=== PATIENT | male | born 1945 | race Caucasian/White ===

== ENCOUNTER 2021-03-30 07:07 | Day surgery (SDC) | payer OTHER ==
[2021-03-30] MEDS ORDERED: CEFAZOLIN/SWI 1gm 1 GM/10 ML SYR ONE (07:38)
[2021-03-30] MEDS ORDERED: Ringers Lactate 1,000 ML IV ONE (07:38)
[2021-03-30] MEDS ORDERED: LIDOCAINE 1% MPF 30 ML VIAL ONE (08:29)
[2021-03-30] MEDS ORDERED: BUPIVACAINE 0.25% PF 30 ML VIAL ONE (08:29)
[2021-03-30] MEDS ORDERED: propofoL 200 MG/20 ML VIAL IV ONE (08:35)
[2021-03-30] MEDS ORDERED: FENTANYL CITR 100 MCG/2 ML ONE (08:35)
[2021-03-30] MEDS ORDERED: LIDOCAINE 2% MPF 5 ML VIAL ONE (08:36)
[2021-03-30] MEDS ORDERED: ONDANSETRON 4 MG/2 ML VIAL ONE (08:38)
[2021-03-30] MEDS ORDERED: LIDOCAINE 1% W/EPI 1:100,000 MDV 50 ML VIAL ONE (08:59)
[2021-03-30] MEDS ORDERED: LIDOCAINE 1% W/EPI 1:100,000 MDV 20 ML VIAL ONE (09:02)
--- NOTE | 2021-03-30 09:30 | P.OP ---
Preoperative diagnosis: RIGHT wrist ganglion cyst Postoperative diagnosis: RIGHT wrist lipoma Primary procedure: Excision of Wrist Ganglion / Lipoma Anesthesia: Local Estimated blood loss: <2cc Specimen: lipomatous mass Findings: ~4cm round lipomatous mass affixed to tendon sheath Complications: None Transferred to: Recovery Room Condition: Good
[2021-03-30 10:22] VITALS: BP 153/89; TEMP 97.4; O2SAT 94
--- NOTE | 2021-03-30 12:02 | OP ---
Date of Procedure: 03/30/2021 Surgeon: Javi Manning MD, Preoperative Diagnosis: Right wrist ganglion cyst. Preoperative Diagnosis: Right wrist lipomatous mass. Procedure: Excision of right wrist lipomatous mass. Anesthesia: Local 1% lidocaine with epinephrine used. Estimated Blood Loss: 2 mL. Specimen: Lipomatous mass. Findings: Approximately 4 cm round lipomatous mass affixed to the extensor hallucis tendon. Complications: None. Disposition: The patient was transferred to recovery room in good condition. Procedure In Detail: After informed consent was obtained, the patient was brought to the operating r oom, prepped and draped in the usual sterile fashion. Under local anesthesia, I anesthetized the are a around the ganglion cyst at the dorsal aspect of the wrist on the radial side. I then made a small incision overlying the cystic structure with a 15 blade down through subcutaneous tissues. I used n eedle cautery to dissect circumferentially around to separate the mass from the subcutaneous tissue p malik and a combination of blunt dissection was used. Small venous and single arterial feeding vessel s were encountered and these were tied off using 3-0 nylon sutures and ligated at this point. At thi s point, circumferentially dissected the mass off the extensor hallucis tendon and found the mass to be quite lipomatous. The patient was able to open and close his hand, had full range of motion and g rip strength throughout the procedure which was tested frequently throughout the procedure. I then r emoved the mass, sent off for pathologic examination. Copiously irrigated the area. I had the patie nt open and close his hand once again and performed finger exams and he had full range of motion and no neurologic deficits. No motor deficits. I then irrigated the area once again, dried and closed t he deep dermal plane with an interrupted 4-0 Vicryl suture and the skin was then closed with 3-0 nylo n in a vertical mattress suture type orientation and sterile dressing placed over top. The patient t olerated the procedure well without evidence of complication and transferred to PACU in good conditio n. All counts were correct at the end of the case. TK/MODL Voice ID: [id number] Report ID: [id number]
== END 2021-03-30 10:49 | disposition home or self-care (01) ==
LOC: OR 07:07
PROVIDERS: ATTEND Surgery
PROC: 0JBG0ZZ Excision of Right Lower Arm Subcutaneous Tissue and Fascia, Open Approach (ICD-10-PCS; principal; 2021-03-30 08:30)
DX: M67.431 Ganglion, right wrist (principal); Z20.822 Contact with and (suspected) exposure to COVID-19
CPT/HCPCS: 88304; 11404; U0003; J2704; J3010; J0690; J7120; J2405